=== PATIENT | male | born 1980 | race Two or more races ===

== ENCOUNTER 2016-05-16 13:56 | Emergency (ER) | payer OTHER ==
[2016-05-16 14:14] VITALS: BP 141/87; PULSE 88; TEMP 98.7; BMI 34.5
--- NOTE | 2016-05-16 15:52 | PDOC ---
History of Present Illness - General Chief Complaint: Back Pain Stated Complaint: BACK PAIN Time Seen by Provider: 05/16/16 15:50 History Source: Patient Exam Limitations: No Limitations - History of Present Illness Initial Comments: CHIEF COMPLAINT: 35 y/o afebrile male with PMH slipped discs c/o low back pain for the past 2.5 weeks. HISTORY OF PRESENT ILLNESS: The patient states he strained his back 2 weeks ago. It has been bothering him on and off since then but over the past few days while working it's gotten much worse. 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 He hasn't taken anything for the pain. He denies fall , f/c, saddle anesthesia, bowel/bladder incontinence, numbness/tingling in LEs. Vital signs on arrival are within normal limits. REVIEW OF SYSTEMS: GENERAL/CONSTITUTIONAL: No fever/chills. No weakness. No weight change. HEAD, EYES, EARS, NOSE AND THROAT: No change in vision. No ear pain or discharge. No sore throat. GENITOURINARY: No dysuria, frequency, or change in urination. MUSCULOSKELETAL: No joint or muscle swelling or pain. No neck pain. +low back pain SKIN: No rash or easy bruising. NEUROLOGIC: No headache, vertigo, loss of consciousness, or loss of sensation. PHYSICAL EXAM: GENERAL: The patient is awake, alert, and fully oriented, in no acute distress. He appears uncomfortable and is slow with movement. HEAD: Normal with no signs of trauma. BACK: No midline lumbar/sacral TTP or step offs. Pain reproduced with palpation of right lumbar paravertebral muscles and with lateral movements of lumbar spine. EXTREMITIES: Normal range of motion, no edema. NEUROLOGICAL: Normal speech, normal gait. CN II-XII grossly intact. No saddle anesthesia. SKIN: Warm, dry, normal turgor, no rashes or lesions noted. Past History - Past Medical History Allergies/Adverse Reactions: Allergies Allergy/AdvReac Type Severity Reaction Status Date / Time No Known Allergies Allergy Verified 05/16/16 14:08 Home Medications: Ambulatory Orders Ibuprofen 600 mg PO Q6H #30 tablet 05/16/16 Methocarbamol [Robaxin -] 1,000 mg PO TID #20 tablet 05/16/16 Other medical history: BACK DISC PROBLEMS - Surgical History Orthopedic Surgery: Yes (L KNEE) - Psycho/Social/Smoking Cessation Hx Anxiety: No Suicidal Ideation: No Smoking Status: No Smoking History: Never smoked Have you smoked in the past 12 months: No Number of Cigarettes Smoked Daily: 0 Hx Alcohol Use: Yes (SOCIAL) Drug/Substance Use Hx: No Substance Use Type: None *Physical Exam - Vital Signs Last Vital Signs Temp Pulse Resp BP Pulse Ox 98.7 F 88 20 141/87 99 05/16/16 14:05 05/16/16 14:05 05/16/16 14:05 05/16/16 14:05 05/16/16 14:05 Medical Decision Making - Medical Decision Making A/P: 35 y/o male with low back strain. He is requesting xray to check on his slipped discs. Plan is as follows: 1. IM toradol 2. xray lumbar/sacral spine Xray lumbar/sacral spine IMPRESSION: No fracture. Disc spaces are maintained. The patient states he feels better after toradol. Gave him results. Will call rx for ibuprofen and robaxin. Suggested he take both as prescribed to help with pain and avoid heavy lifting. Informed him that the robaxin may cause drowsiness. Instructed him to apply heat and stretch the area multiple times per day and f/u with his doctor within 1 week. Pt instructed to return to the ER with any worsening or concerning symptoms. The patient verbalizes understanding of all instructions, has no further questions and is awaiting discharge. *DC/Admit/Observation/Transfer Diagnosis at time of Disposition: Muscle spasm of back Low back pain Qualifiers: Chronicity: acute Back pain laterality: right Sciatica presence: without sciatica Qualified Code(s): M54.5 - Low back pain - Discharge Dispostion Disposition: HOME Condition at time of disposition: Improved - Referrals Referrals: Ly Mccarthy [Primary Care Provider] - - Patient Instructions Printed Discharge Instructions: DI for Low Back Pain, DI for Back Spasm Additional Instructions: Discharge Instructions: -The xray of your lower back was normal -2 prescriptions were sent to your pharmacy; please take as directed; Robaxin may cause drowsiness -Apply heat and massage to affected area and stretch multiple times per day -Avoid heavy lifting until symptoms subside -Follow up with your doctor in 1 week if no improvement in symptoms -Return to the ER with any worsening or concerning symptoms - Post Discharge Activity Work/School Note: Back to Work
[2016-05-16] MEDS ORDERED: KETOROLAC TROMETHAMINE 60 MG/2 ML VIAL IM ONE (16:50)
[2016-05-16] MEDS ORDERED: KETOROLAC TROMETHAMINE 60 MG/2 ML VIAL ONE (16:57)
== END 2016-05-16 18:54 | disposition home or self-care (01) ==
LOC: JERFT 13:56 → JER 13:56 → JERFT 18:54
PROC: 3E0233Z Introduction of Anti-inflammatory into Muscle, Percutaneous Approach (ICD-10-PCS; principal; 2016-05-16)
DX: M62.830 Muscle spasm of back (principal); G89.29 Other chronic pain
CPT/HCPCS: 72100-TC; 99281-25